=== PATIENT | female | born 1990 ===

== ENCOUNTER 2020-12-09 13:13 | Outpatient (CLI) | payer OTHER | END 2020-12-09 13:35 | disposition home or self-care (01) | LOC: TRG 13:13 → APU 13:13 → TRG 13:35 | PROVIDERS: ATTEND Obstetrics & Gynecology | DX: O26.892 Other specified pregnancy related conditions, second trimester (principal); Z67.11 Type A blood, Rh negative; Z3A.26 26 weeks gestation of pregnancy | CPT/HCPCS: 86850; 86900; 86901; 96372; J2790 ==

== ENCOUNTER 2021-03-04 19:14 | Outpatient (CLI) | payer MEDICAID, OTHER ==
[2021-03-04 19:40] VITALS: BP 125/68
== END 2021-03-04 21:25 | disposition home or self-care (01) ==
LOC: TRG 19:14 → APU 19:25 → TRG 21:25
PROVIDERS: ATTEND Obstetrics & Gynecology
DX: Z34.93 Encounter for supervision of normal pregnancy, unspecified, third trimester (principal); Z3A.38 38 weeks gestation of pregnancy
CPT/HCPCS: 36415; 59025; 84112

== ENCOUNTER 2021-03-07 17:46 | Inpatient (IN) | payer MEDICAID ==
[2021-03-07] MEDS ORDERED: MINERAL OIL 30 ML ORAL LIQD PO PRN (18:54)
[2021-03-07] MEDS ORDERED: ePHEDrine SULFATE 50 MG/1 ML INJ IV PRN ×2 (18:54→22:17)
[2021-03-07] MEDS ORDERED: ONDANSETRON 4 MG/2 ML INJ IV PRN (18:54)
[2021-03-07] MEDS ORDERED: ACETAMINOPHEN 325 MG TAB PO PRN (18:54)
[2021-03-07] MEDS ORDERED: NalbUPHINE 10 MG/1 ML INJ IV PRN (18:54)
[2021-03-07] MEDS ORDERED: TERBUTALINE 1 MG/1 ML INJ SUB-Q PRN (18:54)
[2021-03-07] MEDS ORDERED: fentaNYL 100 MCG/2 ML INJ IV PRN (18:54)
[2021-03-07] MEDS ORDERED: BUTORPHANOL 2 MG/1 ML INJ IV PRN (18:54)
[2021-03-07] MEDS ORDERED: LIDOCAINE (2%) 20 MG/1 ML VIAL 20 ML MDV INFILTRATI ONE (18:54)
[2021-03-07] MEDS ORDERED: OXYTOCIN DRIP 30 UNITS/500 ML BAG IV SCH ×2 (19:00)
[2021-03-07] MEDS: LACTATED RINGERS 1,000 ML IV SCH ×3 (19:08→23:58)
[2021-03-07] MEDS: BUTORPHANOL 2 MG/1 ML INJ IV PRN ×2 (19:09→21:10)
[2021-03-07 19:36] LABS: Hematocrit 34.8 % (30.3-42.9); Hemoglobin 12.3 gm/dl (10.1-14.3); Mean Corpuscular HGB Conc 35 % (30-34); Mean Corpuscular Volume 89 fl (79-97); Platelet Count 309 K/mm3 (140-440)
--- NOTE | 2021-03-07 20:20 | History and Physical Report ---
History of Present Illness Date of examination: 03/07/21 Chief complaint: SROM active labor Past History Past Surgical History: no surgical history - Obstetrical History Expected Date of Delivery: 03/16/21 Actual Gestation: 38 Week(s) 6 Day(s) : 2 Medications and Allergies Allergies Allergy/AdvReac Type Severity Reaction Status Date / Time No Known Allergies Allergy Verified 12/09/20 13:22 Active Meds: Active Medications Acetaminophen (Acetaminophen 325 Mg Tab) 650 mg PO Q4H PRN PRN Reason: Pain, Mild (1-3) Butorphanol Tartrate (Butorphanol 2 Mg/1 Ml Inj) 1 mg IV Q2H PRN PRN Reason: Pain, Moderate(4-6) LABOR PAIN Butorphanol Tartrate (Butorphanol 2 Mg/1 Ml Inj) 2 mg IV Q2H PRN PRN Reason: Pain , Severe (7-10) Last Admin: 03/07/21 19:09 Dose: 2 mg Documented by: Ephedrine Sulfate (Ephedrine Sulfate 50 Mg/1 Ml Inj) 10 mg IV Q2M PRN PRN Reason: Hypotension Fentanyl (Fentanyl 100 Mcg/2 Ml Inj) 100 mcg IV Q2H PRN PRN Reason: Pain,Severe (7-10) LABOR PAIN Oxytocin/Sodium Chloride (Pitocin/Ns 30 Unit/500ml) 30 units in 500 mls @ 2 mls/hr IV TITR GABRIELLA; Protocol Lactated Ringer's (Lactated Ringers) 1,000 mls @ 125 mls/hr IV DIRECT GABRIELLA Last Admin: 03/07/21 19:08 Dose: 125 mls/hr Documented by: Oxytocin/Sodium Chloride (Pitocin/Ns 30 Unit/500ml) 30 units in 500 mls @ 40 ml s/hr IV TITR GABRIELLA; Protocol Mineral Oil (Mineral Oil 30 Ml Oral Liqd) 30 ml PO QHS PRN PRN Reason: Constipation Nalbuphine HCl (Nalbuphine 10 Mg/1 Ml Inj) 10 mg IV Q2H PRN PRN Reason: Pain, Moderate (4-6) Ondansetron HCl (Ondansetron 4 Mg/2 Ml Inj) 4 mg IV Q8H PRN PRN Reason: Nausea And Vomiting Terbutaline Sulfate (Terbutaline 1 Mg/1 Ml Inj) 0.25 mg SUB-Q ONCE PRN PRN Reason: Hyperstimulation/Hypertonicity - Vital Signs Vital signs: Vital Signs Pulse BP 89 133/79 03/07/21 18:26 03/07/21 18:26 Temp Pulse Resp BP Pulse Ox 89 18 133/79 03/07/21 18:26 03/07/21 19:09 03/07/21 18:26 - Physical Exam Breasts: Positive: deferred, mass Cardiovascular: Normal S1, Normal S2 Lungs: Positive: Clear to auscultation Abdomen: Positive: normal appearance, normal bowel sounds Genitourinary (Female): Positive: normal external genitalia, normal perenium Vagina: Positive: normal moisture Anus/Rectum: Positive: normal perianal skin Extremities: Positive: normal Deep Tendon Reflex Grade: Normal +2 - Obstetrical FHR: category 1 Results Result Diagrams: 03/07/21 19:05 Abnormal lab results 03/07/21 Range/Units 19:05 MCHC 35 H (30-34) % RDW 13.0 L (13.2-15.2) % All other labs normal. Assessment and Plan admit cfm gbs prophylaxis prn pain meds prn expect Maternal/fetall wellbeing reassuring overall. Clara Portillo MD
--- NOTE | 2021-03-07 22:15 | Anesthesia Consultation ---
Anesthesia Consult and Med Hx Date of service: 03/07/21 - Airway Anesthetic Teeth Evaluation: Poor ROM Head & Neck: Adequate Mental/Hyoid Distance: Adequate Mallampati Class: Class II Intubation Access Assessment: Probably Good - Pulmonary Exam CTA: Yes - Cardiac Exam Cardiac Exam: RRR - Pre-Operative Health Status ASA Pre-Surgery Classification: ASA2 Proposed Anesthetic Plan: Epidural - Pulmonary Hx Smoking: No Hx Asthma: No Hx Respiratory Symptoms: No SOB: No COPD: No Home Oxygen Therapy: No Hx Pneumonia: No Hx Sleep Apnea: No - Cardiovascular System Hx Hypertension: No Hx Coronary Artery Disease: No Hx Heart Attack/AMI: No Hx Angina: No Hx Percutaneous Transluminal Coronary Angioplasty (PTCA): No Hx Cardia Arrhythmia: No Hx Pacemaker: No Hx Internal Defibrillator: No Hx Valvular Heart Disease: No Hx Heart Murmur: No Hx Peripheral Vascular Disease: No - Central Nervous System Hx Neuromuscular Disorder: No Hx Seizures: No CVA: No Hx Back Pain: No Hx Psychiatric Problems: No - Gastrointestinal Hx Ulcer: No Hx Gastroesophageal Reflux Disease: Yes - Endocrine Hx Renal Disease: No Hx End Stage Renal Disease: No Hx Cirrhosis: No Hx Liver Disease: No Hx Insulin Dependent Diabetes: No Hx Non-Insulin Dependent Diabetes: No Hx Thyroid Disease: No Hx Hypothyroidism: No Hx Hyperthyroidism: No - Hematic Hx Anemia: No Hx Sickle Cell Disease: No - Other Systems Hx Alcohol Use: No Hx Substance Use: No Hx Cancer: No Hx Obesity: Yes
[2021-03-07] MEDS ORDERED: NALOXONE 2 MG/2 ML INJ IV PRN (22:17)
--- NOTE | 2021-03-07 22:17 | Progress Note ---
Labor Epidural - Labor Epidural Start Time: 21:45 Stop Time: 21:55 Performed by:: TRACY COSME Procedure: Patient is requesting a laboring epidural for laboring pain. Patient IDed, H&P reviewed, all questions and concerns were answered, and consent was signed. Timeout was performed at bedside. Patient in sitting position. Sterile prep and drape was performed. [3] ml of 1% lidocaine skin wheal at L[3]- L [4]. 18- gauge Tuohy epidural needle was advanced to loss of resistance with saline technique 7cm. Negative CSF negative blood. Epidural catheter advanced to [12] centimeters. [NEGATIVE] Aspiration [NEGATIVE] test dose. Sterile dressing applied. Patient tolerated procedure.
[2021-03-07] MEDS ORDERED: fentaNYL-BUPIV 2 MCG/ML-0.125% 200 MCG/100 ML BAG EPIDURAL SCH (23:00)
[2021-03-08] MEDS ORDERED: LIDOCAINE (2%) 20 MG/1 ML VIAL 20 ML MDV INFILTRATI ONE (05:08)
--- NOTE | 2021-03-08 05:40 | Procedure Note ---
OB Delivery Note - Delivery Date of Delivery: 03/08/21 Surgeon: JUNIOR RODRIGUES Estimated blood loss: 200cc - Vaginal Delivery position: OA Delivery induction: none Delivery augmentation: pitocin Delivery monitor: external FHT, external uterine Route of delivery: Delivery placenta: spontaneous Delivery cord: 3 umbilical vessels Episiotomy: none Delivery laceration: 1st degree Delivery repair: vicryl Anesthesia: epidural Delivery comments: Patient pushed to deliver a viable male over an intact perineum with weight 3718gms and 8/9. Position MILAGROS, no nuchal cord. Spontaneous cry at delivery. Delivery of the anterior shoulder atraumatic, remainder of delivery uncomplicated. Cord clamped cut and baby handed to waiting FABIANA team. Spontaneous delivery of an intact placenta with three-vessel cord. Inspection of the perineum cervix and vagina revealed a first degree perineal laceration that was repaired with 2-0 vicryl in the usual fashion. Firm fundus, EBL 200ml. All sponge needle and instrument counts correct x2. Mom and baby stable to . Clara Rodrigues MD
[2021-03-08] MEDS ORDERED: LANOLIN/ZINC/DIMETHICONE (LANSINOH) 7 GM TP PRN (05:44)
[2021-03-08] MEDS ORDERED: ONDANSETRON 4 MG/2 ML INJ IV PRN (05:44)
[2021-03-08] MEDS ORDERED: MAGNESIUM HYDROXIDE (MOM) ORAL LIQD UDC PO PRN (05:44)
[2021-03-08] MEDS ORDERED: KETOROLAC 30 MG/1 ML INJ IV PRN (05:44)
[2021-03-08] MEDS ORDERED: PROMETHAZINE 25 MG RECT SUPP PR PRN (05:44)
[2021-03-08] MEDS ORDERED: PROMETHAZINE 25 MG TAB PO PRN (05:44)
[2021-03-08] MEDS ORDERED: diphenhydrAMINE 25 MG CAP PO PRN (05:44)
[2021-03-08] MEDS ORDERED: ACETAMINOPHEN 325 MG TAB PO PRN (05:44)
[2021-03-08] MEDS: HYDROcodone/ACETAMINOPHEN 5-325 MG TAB PO PRN (07:39)
[2021-03-08] MEDS: IBUPROFEN 600 MG TAB PO SCH ×2 (11:17→23:43)
--- NOTE | 2021-03-08 16:41 | Post Anesthesia Evaluation ---
- Post Anesthesia Evaluation Patient Participated: Yes Airway Patent: Yes Stable Respiratory Function: Yes Nausea/Vomiting: No Temp > 96.8F: Yes Pain Manageable: Yes Adequeate Hydration: Yes Anesthesia Complications: No Block Receding Appropriately: Yes Patient on Ventilator: No
[2021-03-08 18:30] LABS: Hematocrit 33.2 % (30.3-42.9); Hemoglobin 11.5 gm/dl (10.1-14.3)
[2021-03-09] MEDS: IBUPROFEN 600 MG TAB PO SCH ×3 (05:21→23:23)
[2021-03-09] MEDS: HYDROcodone/ACETAMINOPHEN 5-325 MG TAB PO PRN ×2 (10:37→20:27)
[2021-03-09] MEDS ORDERED: FLU VACC QUAD 2020-2021 (6 months +)/PF 60 0.5 ML SYRINGE IM ONE (12:00)
--- NOTE | 2021-03-09 14:36 | Progress Note ---
Assessment and Plan Anticipate discharge PPD 2 - Patient Problems (1) Vaginal delivery Current Visit: Yes Status: Acute Plan to address problem: -PP Care per routine -bottle feeding (2) GBS carrier Current Visit: Yes Status: Acute Plan to address problem: to be monitored for 48 hours Subjective - Subjective Date of service: 03/09/21 Principal diagnosis: Vaginal delivery Patient reports: appetite normal, voiding normally, pain well controlled, flatus, ambulating normally : doing well Objective - Vital Signs Latest vital signs: Vital Signs Temp Pulse Resp BP BP Pulse Ox 03/09/21 08:46 98.0 F 77 18 125/83 97 03/09/21 00:00 98.6 F 75 18 119/74 03/08/21 20:49 98.0 F 93 H 18 112/53 98 03/08/21 18:00 97.9 F 101 H 18 112/51 96 Intake and Output 03/08/21 03/09/21 03/09/21 22:59 06:59 14:59 Intake Total 300 Balance 300 Intake: Intake, Free Water 300 Other: # Voids Void 1 1 - Exam Breasts: Present: normal Cardiovascular: Present: Regular rate Lungs: Present: Clear to auscultation Abdomen: Present: normal appearance, soft Uterus: Present: normal, firm Extremities: Present: normal
[2021-03-09] MEDS: WITCH HAZEL/ GLYCERIN PAD TP PRN (17:00)
[2021-03-10] MEDS: IBUPROFEN 600 MG TAB PO SCH (05:45)
--- NOTE | 2021-03-10 07:57 | Progress Note ---
Assessment and Plan - Patient Problems (1) Vaginal delivery Current Visit: Yes Status: Acute Plan to address problem: discharge home Subjective - Subjective Date of service: 03/10/21 Principal diagnosis: Vaginal delivery Interval history: Patient doing well. Patient reports: appetite normal, voiding normally, pain well controlled [place]: doing well Objective - Vital Signs Latest vital signs: Vital Signs Temp Pulse Resp BP BP Pulse Ox 03/10/21 00:00 98.6 F 78 18 115/78 03/09/21 20:24 98.0 F 72 18 119/80 95 03/09/21 16:45 98.2 F 76 18 117/69 97 03/09/21 08:46 98.0 F 77 18 125/83 97 Intake and Output 03/09/21 03/10/21 03/10/21 22:59 06:59 14:59 Intake Total 300 600 Balance 300 600 Intake: Intake, Free Water 300 600 Other: # Voids Void 1 1 - Exam Uterus: Present: normal, firm
--- NOTE | 2021-03-10 08:00 | Discharge Summary ---
Providers - Providers Date of Admission: 03/07/21 18:54 Date of discharge: 03/10/21 Attending physician: ASHA BAUTISTA Primary care physician: ASHA BAUTISTA Hospitalization Reason for admission: active labor Delivery: Discharge diagnosis: IUP at term delivered Hospital course: Patient admitted in labor with srom. had . uncomplicated Condition at discharge: Good Disposition: DC-01 TO HOME OR SELFCARE - Discharge Diagnoses (1) Vaginal delivery Status: Acute Plan - Discharge Medications Prescriptions: Ibuprofen [Motrin 800 MG tab] 800 mg PO Q8HR PRN 30 Days #60 tablet PRN Reason: Pain, Moderate (4-6) Ibuprofen [Motrin] 800 mg PO Q8HR PRN #30 tablet PRN Reason: Pain , Severe (7-10) HYDROcodone/APAP 5-325 [[place] 5/325] 1 each PO Q6HR PRN #15 tablet PRN Reason: Pain - Provider Discharge Summary Activity: no sex for 6 weeks, no heavy lifting 4 weeks, no strenuous exercise Diet: routine Instructions: routine Additional instructions: [] Smoking cessation referral if applicable(refer to patient education folder for contact #) [] Refer to [facility] Booklet Call your doctor immediately for: * Fever > 100.5 * Heavy vaginal bleeding ( >1 pad per hour) * Severe persistent headache * Shortness of breath * Reddened, hot, painful area to leg or breast * schedule visit in 4 weeks - Follow up plan
[2021-03-10 09:08] VITALS: BP 113/77
[2021-03-10] MEDS ORDERED: medroxyPROGESTERone ACETATE 150 MG/ML SYRINGE IM ONE (13:31)
[2021-03-10] MEDS: WITCH HAZEL/ GLYCERIN PAD TP PRN (14:47)
== END 2021-03-10 15:00 | disposition home or self-care (01) | DRG 775 ==
LOC: TRG 17:46 → APU 17:47 → LD 18:15 → TRG 18:54 → LD 18:54 → OB 03-08 08:31
PROVIDERS: ADMIT Obstetrics & Gynecology; ATTEND Obstetrics & Gynecology
PROC: 3E0R3BZ Introduction of Anesthetic Agent into Spinal Canal, Percutaneous Approach (ICD-10-PCS; 2021-03-07)
PROC: 00HU33Z Insertion of Infusion Device into Spinal Canal, Percutaneous Approach (ICD-10-PCS; 2021-03-07)
PROC: 10E0XZZ Delivery of Products of Conception, External Approach (ICD-10-PCS; principal; 2021-03-08)
PROC: 0HQ9XZZ Repair Perineum Skin, External Approach (ICD-10-PCS; 2021-03-08)
PROC: 30233S1 Transfusion of Nonautologous Globulin into Peripheral Vein, Percutaneous Approach (ICD-10-PCS; 2021-03-09)
DX: O99.214 Obesity complicating childbirth (principal); Z37.0 Single live birth; Z3A.38 38 weeks gestation of pregnancy; E66.9 Obesity, unspecified; O99.62 Diseases of the digestive system complicating childbirth; K21.9 Gastro-esophageal reflux disease without esophagitis; O70.0 First degree perineal laceration during delivery; O99.824 Streptococcus B carrier state complicating childbirth; Z20.822 Contact with and (suspected) exposure to COVID-19
CPT/HCPCS: 36415; 59025; 84112; 85014; 85018; 85027; 85461; 86592; 86850; 86900; 86901; G0378; J0595; J1050; J2590; J2790; J7120; U0003

== ENCOUNTER 2021-06-10 09:40 | Outpatient (CLI) | payer MEDICAID ==
[2021-06-10 10:30] LABS: Blood Urea Nitrogen 14 mg/dL (7-17)
--- NOTE | 2021-06-10 11:46 | Cat Scan Report ---
CT PELVIS WITH IV CONTRAST INDICATION / CLINICAL INFORMATION: PELVIC PAIN 100 ML OMNI 300 . TECHNIQUE: Axial CT images were obtained through the pelvis after IV contrast. All CT scans at this location are performed using CT dose reduction for ALARA by means of automated exposure control. COMPARISON: None available. FINDINGS: There is thickening within the visualized portions of the descending colon and sigmoid colon martinez. N o free fluid is identified. Antibiotics not seen as is an adenoma exam. Urinary bladder is not well-d istended visualized portions of the uterus appear normal. Appendix appears normal. Superior and infer ior pubic rami appear intact. Sacrum appears normal. IMPRESSION: 1. Suggested thickening of the descending colon into the sigmoid colon martinez. Findings could represen t colitis however could also represent incomplete distention. No free fluid or abscess collection is seen. 2. No acute bone findings. Signer Name: Fili Kelly MD Signed: 06/10/2021 11:41 AM Workstation Name: [id number]
== END 2021-06-10 09:41 | disposition home or self-care (01) ==
LOC: CT 09:40
PROVIDERS: ATTEND Obstetrics & Gynecology
DX: R10.2 Pelvic and perineal pain (principal); N93.8 Other specified abnormal uterine and vaginal bleeding; N71.9 Inflammatory disease of uterus, unspecified; M79.2 Neuralgia and neuritis, unspecified
CPT/HCPCS: 36415; 72193; 82565; 84520; Q9967

== ENCOUNTER 2021-08-05 07:01 | Day surgery (SDC) | payer MEDICAID ==
[~2021-08-05 07:01] MED LIST: SODIUM CHLORIDE 0.9% 1000 ML 1,000 ML IV SCH; WATER FOR IRRIG STERILE 1,000 ML BOTTLE ONE; WATER FOR IRRIG STERILE 250 ML BOTTLE IR ONE
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
--- NOTE | 2021-08-05 07:38 | Anesthesia Day of Surgery ---
Anesthesia Day of Surgery - Day of Surgery Patient Examined: Yes Patient H&P Reviewed: Yes Patient is NPO: Yes
[2021-08-05] MEDS ORDERED: LIDOCAINE MPF (2%) 20 MG/1 ML VIAL 5 ML ONE (08:50)
[2021-08-05] MEDS ORDERED: propofoL 200 MG/20 ML VIAL IV ONE ×2 (08:51→09:28)
--- NOTE | 2021-08-05 09:52 | Procedure Note ---
Date of procedure: 08/05/21 Pre-op diagnosis: Lower,Abdominal Pain/ R/O Colitis/ F/H/O Colitis (mpother has h/o Colitis) Post-op diagnosis: other (R/O Microscopic Colitis/ R/O Ileitis/Solitary, Small RectalPolyps (possibly Hyperplastic)/Minor,Internal Hemorrhoids) Procedure: Colonoscopy with biopsy Anesthesia: [facility] [place] Surgeon: PREETI WATSON Estimated blood loss: minimal Pathology: list Specimen disposition: to lab Condition: stable Disposition: same day (Treat with Benytl prn, OTC Probiotic. Avoid aspirin and NSAID for 5 days, otherwise resume home medication and F/U in 1 to 2 weeks ([phone]).)
--- NOTE | 2021-08-05 09:59 | Operative Report ---
DATE OF SURGERY: 08/05/2021 PROCEDURE PERFORMED: Colonoscopy with biopsy. INDICATIONS: This is a 31-year-old otherwise healthy female who has lately been complaining of some lower abdominal pain and discomfort. She does give a family history of colitis. The patient's mother has colitis. Colonoscopy was done to make sure there was not any significant lower GI pathology present. DESCRIPTION OF PROCEDURE: Procedure was done after getting informed consent with MAC anesthesia. Initial rectal examination was unremarkable. The instrument was passed through the rectum onto the cecum, which was identified with ileocecal valve and the appendiceal orifice. Visualization was fair to good. There was some liquid material noted in the cecum that was suctioned out. The terminal ileum was intubated, showed normal mucosa. Biopsy was done to rule out for possible ileitis. Cecum, ascending colon, transverse colon, descending colon, sigmoid likewise showed normal mucosa. Random biopsies were done to rule out for possible microscopic colitis with minimal bleeding. The rectum showed a small solitary polyp, possibly hyperplastic, removed by cold biopsy as well with some minimal bleeding and some minor internal hemorrhoid on the retroverted view. ASSESSMENT: Abdominal pain, family history of colitis. The patient's mother has history of colitis, rule out microscopic colitis, rule out ileitis, solitary small rectal polyp, possibly hyperplastic, minor internal hemorrhoid. PLAN: To treat the patient with p.r.n. dose of Bentyl. Encouraged the patient to take probiotics. Have the patient to avoid aspirin and aspirin-related products for the next 5 days, otherwise resume home medication and follow up in the office in 1-2 weeks' time. Procedure was done in the GI lab with assistance of the GI lab team, which included the GI nurse, the lidar technician and with assistance of anesthesia. TID: [id number] RECEIPT: [id number] JANEL/CLYDE
[2021-08-05 10:58] VITALS: BP 121/74
--- NOTE | 2021-08-05 16:29 | Post Anesthesia Evaluation ---
- Post Anesthesia Evaluation Patient Participated: Yes Airway Patent: Yes Stable Respiratory Function: Yes Nausea/Vomiting: No Temp > 96.8F: Yes Pain Manageable: Yes Adequeate Hydration: Yes Anesthesia Complications: No Block Receding Appropriately: Not Applicable Patient on Ventilator: No
== END 2021-08-05 10:42 | disposition home or self-care (01) ==
LOC: GIO 07:01
DX: R10.30 Lower abdominal pain, unspecified (principal); K64.0 First degree hemorrhoids; K63.89 Other specified diseases of intestine; K63.5 Polyp of colon; K62.1 Rectal polyp; E66.9 Obesity, unspecified; K21.9 Gastro-esophageal reflux disease without esophagitis; Z79.899 Other long term (current) drug therapy; Z98.890 Other specified postprocedural states
CPT/HCPCS: 45380; 88305; J2704; J7030